=== PATIENT | male | born 1990 | race Caucasian/White ===

== ENCOUNTER 2016-09-04 20:53 | Emergency (ER) | payer BC ==
[~2016-09-04 20:53] MED LIST: NO HOME MEDICATION XX; PERCOCET 5-3251 EACH PO
[2016-09-04 21:32] LABS: BASO % 0.3 % (0-2); EOS % 0.2 % (0-7); HGB-HEMOGLOBIN 15.7 gm/dl (13.5-17.0); IMMATURE GRANULOCYTES ABSOLUTE 0.02 tho/cmm (0-0.03); IMMATURE GRANULOCYTES PERCENT 0.2 % (0-0.3); LYMPH % 13.9 % (20-45); LYMPH ABSOLUTE COUNT 1.5 tho/cmm (0.8-4.5); MCH (MEAN CORPUSCULAR HGB) 29.4 pg (28.0-32.0); MCHC MEAN CORPUSCULAR HGB CONC 35.7 % (32.0-36.0); MCV (MEAN CELL VOLUME) 82.4 fl (82.0-96.0); MONO % 6.3 % (0-12); MONOCYTE ABSOLUTE COUNT 0.7 tho/cmm (0.0-1.2); NEUTROPHIL ABSOLUTE COUNT 8.7 tho/cmm (1.6-8.0); NEUTROPHIL-AUTOMATED 8.7 tho/cmm (1.6-8.0); NEUTROPHILS % 79.1 % (40-80); PLATELET COUNT 248 tho/cmm (150-450); RED BLOOD COUNT 5.34 mil/cmm (4.40-5.70); RED CELL DISTRIBUTION WIDTH 12.5 % (12.4-16.4)
[2016-09-04 21:44] LABS: ANION GAP 12 mmol/L (0-20); BLOOD UREA NITROGEN 9 mg/dl (6-24); CALCIUM 9.8 mg/dl (8.5-10.5); CARBON DIOXIDE-VENOUS 26 mmol/L (22-32); CHLORIDE 106 mmol/l (96-110); CREATININE 1.28 mg/dl (0.60-1.30); GLUCOSE 114 mg/dL (70-110); POTASSIUM 4.1 mmol/L (3.7-5.1); SODIUM 140 mmol/L (135-145); eGFR VALUE FOR BLACK >90 mL/Min
[2016-09-04 21:50] LABS: URINE APPEARANCE CLEAR; URINE BILIRUBIN NEGATIVE (NEG); URINE BLOOD SMALL (NEG); URINE COLOR YELLOW; URINE GLUCOSE (UA) NEGATIVE (NEG); URINE KETONE NEGATIVE (NEG); URINE LEUKOCYTE ESTERASE NEGATIVE (NEG); URINE NITRITE NEGATIVE (NEG); URINE PROTEIN SMALL (NEG)
[2016-09-04 21:53] LABS: URINE EPITHELIAL CELLS 0 /[HPF] (0-10); URINE WBC 0-1 /[HPF] (0-5)
[2016-09-04] MEDS ORDERED: FLOMAX0.4 M1 PO (23:08)
[2016-09-04] MEDS ORDERED: NORCO 5/3251 TAB PO (23:08)
[2016-09-04] MEDS ORDERED: ZOFRAN4 M2 PO (23:08)
== END 2016-09-04 23:37 ==
LOC: EDMED 20:53
PROVIDERS: Emergency Medicine
DX: N13.2 Hydronephrosis with renal and ureteral calculous obstruction (principal); R19.7 Diarrhea, unspecified; Z87.442 Personal history of urinary calculi
CPT/HCPCS: J1885; J2405; J7030